=== PATIENT | female | born 1995 | race Caucasian/White ===

== ENCOUNTER 2017-07-26 20:51 | Emergency (ER) | payer OTHER ==
[~2017-07-26] VITALS: Ht 175.3 cm; Wt 104.3 kg
[~2017-07-26 20:51] MED LIST: ALBU0.0912 IH; FERR-212 PO; PREN-546 PO
[2017-07-26 21:06] VITALS: BP 126/75
--- NOTE | 2017-07-26 21:38 | NUR ---
PT TAKEN TO OVERFLOW 3.
--- NOTE | 2017-07-26 21:45 | NUR ---
PATIENT PRESENTS TO ED WITH c/o body ache and left side pain and episotomy pain . PT STATES slipt in bathroom and fell on left side . DENIES N/V/D; SKIN IS PINK/WARM/DRY; AAOX4 WITH EVEN AND STEADY GAIT; LUNGS CLEAR BL; HR EVEN AND REGULAR; PT DENIES ANY FEVER, CP, SOB, OR COUGH AT THIS TIME; PATIENT STATES PAIN OF 3/10 AT THIS TIME; VSS; PATIENT POSITIONED FOR COMFORT; HOB ELEVATED;sitting in chair. ER MD MADE AWARE OF PT STATUS.
--- NOTE | 2017-07-26 21:52 | NUR ---
Patient being evaluated by Dr. Nassar in overflow.
[2017-07-26 22:16] VITALS: BP 126/75
--- NOTE | 2017-07-26 22:16 | NUR ---
Patient discharged with v/s stable. Written and verbal after care instructions given and explained BY DR. HARRELL. Patient verbalized understanding. Ambulatory with steady gait. All questions addressed prior to discharge. Advised to follow up with PMD.
== END 2017-07-26 22:16 | disposition home or self-care (01) ==
LOC: MED 20:51
DX: Z04.3 Encounter for examination and observation following other accident (principal); R03.0 Elevated blood-pressure reading, without diagnosis of hypertension; Z91.048 Other nonmedicinal substance allergy status; Z88.8 Allergy status to other drugs, medicaments and biological substances; J45.909 Unspecified asthma, uncomplicated
CPT/HCPCS: 99283

== ENCOUNTER 2020-12-04 02:30 | Emergency (ER) | payer OTHER ==
[~2020-12-04] VITALS: Ht 175.3 cm; Wt 83.9 kg
[2020-12-04 02:34] VITALS: BP 112/75
[2020-12-04 03:39] LABS: ANION GAP 9.9 (8-16); CARBON DIOXIDE 28.9 mmol/L (21-32); CREATININE 0.9 mg/dL (0.6-1.3); POTASSIUM 3.8 mmol/L (3.5-5.1)
[2020-12-04] MEDS ORDERED: KETOROLAC 30 MG/ML VIAL IM ONE (03:50)
[2020-12-04 03:53] LABS: BARBITURATE, URINE NEGATIVE ng/ml (NEG <=200); BENZODIAZEPINE, URINE NEGATIVE ng/mL (NEG <=200); CANNABINOID, URINE NEGATIVE ng/mL (NEG <=50); COCAINE, URINE NEGATIVE ng/mL (NEG <=300); OPIATE, URINE NEGATIVE ng/mL (NEG <=2000); PHENCYCLIDINE SCREEN,URINE NEGATIVE ng/mL (NEG <=25)
[2020-12-04 04:18] VITALS: BP 112/75
== END 2020-12-04 04:19 | disposition home or self-care (01) ==
LOC: MED 02:30
DX: R07.89 Other chest pain (principal); F41.9 Anxiety disorder, unspecified; J45.909 Unspecified asthma, uncomplicated; Z79.899 Other long term (current) drug therapy; Z91.048 Other nonmedicinal substance allergy status
CPT/HCPCS: 36415; 71045; 80048; 80305; 85379; 93005; 96372; 99285; J1885

== ENCOUNTER 2020-12-24 20:48 | Emergency (ER) | payer OTHER ==
[~2020-12-24] VITALS: Ht 175.3 cm; Wt 83.9 kg
[2020-12-24 20:56] VITALS: BP 107/73
[2020-12-24 23:05] VITALS: BP 110/83
== END 2020-12-24 23:05 | disposition home or self-care (01) ==
LOC: MED 20:48
DX: G44.319 Acute post-traumatic headache, not intractable (principal); F07.81 Postconcussional syndrome; J45.909 Unspecified asthma, uncomplicated; Z79.899 Other long term (current) drug therapy; Z91.018 Allergy to other foods; W18.39XA Other fall on same level, initial encounter; Y93.89 Activity, other specified; Y92.89 Other specified places as the place of occurrence of the external cause; Y99.8 Other external cause status
CPT/HCPCS: 70450; 99284

== ENCOUNTER 2021-04-16 19:54 | Emergency (ER) | payer OTHER ==
[~2021-04-16] VITALS: Ht 175.3 cm; Wt 86.2 kg
[2021-04-16 20:00] VITALS: BP 120/76
--- NOTE | 2021-04-16 20:00 | NUR ---
TO BED AMBULATORY
--- NOTE | 2021-04-16 20:10 | NUR ---
25 YO F BIB SELF FOR C/O LOWER BACK PAIN, ABD PAIN. 8/10 RADIATING TO LOWER BACK/ABDOMEN X1 WEEK. PT DENIES FEVER CHILLS. URINARY FREQUENCY/BURNING NOTED. NO OTHER S/S OF DISTRESS NOTED. WILL CONTINUE TO OBSERVE Hx: UTI
[2021-04-16 20:25] LABS: APPEARANCE,URINE CLEAR (CLEAR); BILIRUBIN,URINE NEGATIVE (NEGATIVE); BLOOD, URINE NEGATIVE (NEGATIVE); COLOR,URINE YELLOW (YELLOW); LEUKOCYTE ESTERASE ,URINE NEGATIVE (NEGATIVE); NITRITE, URINE NEGATIVE (NEGATIVE); UGLUCOSE NEGATIVE (NEGATIVE)
[2021-04-16 20:41] LABS: RBC,URINE 0-5 /HPF (0-5); WBC,URINE 0-5 /HPF (0-5)
[2021-04-16] MEDS ORDERED: IBUP-2213 PO (20:44)
[2021-04-16] MEDS ORDERED: ACET-10509 PO (20:44)
[2021-04-16] MEDS ORDERED: CYCL-711 PO (20:44)
[2021-04-16] MEDS ORDERED: LIDO1PAD TP (20:44)
[2021-04-16] MEDS ORDERED: ACETAMINOPHEN EXTRA STRENGTH 500 MG TAB PO ONE (20:45)
[2021-04-16] MEDS ORDERED: KETOROLAC 60 MG/2 ML VIAL IM ONE (20:45)
[2021-04-16] MEDS ORDERED: CYCLOBENZAPRINE 10 MG TAB PO ONE (20:45)
[2021-04-16] MEDS ORDERED: CEPH250C16 PO (21:09)
[2021-04-16] MEDS ORDERED: SULF-58 PO (21:11)
[2021-04-16 22:00] VITALS: BP 120/76
--- NOTE | 2021-04-16 22:03 | NUR ---
Patient discharged with v/s stable. Written and verbal after care instructions given and explained. Patient alert, oriented and verbalized understanding of instructions. Ambulatory with steady gait. All questions addressed prior to discharge. ID band removed. Patient advised to follow up with PMD. Rx of ACETAMINOPHEN, FLEXERIL, IBUPROFEN, LIDOCAINE PATCH, BACTRIM given. Patient educated on indication of medication including possible reaction and side effects. Opportunity to ask questions provided and answered.
== END 2021-04-16 22:01 | disposition home or self-care (01) ==
LOC: MED 19:54
DX: M54.9 Dorsalgia, unspecified (principal); N98.9 Complication associated with artificial fertilization, unspecified; R30.0 Dysuria; J45.909 Unspecified asthma, uncomplicated; Z91.018 Allergy to other foods; Z79.899 Other long term (current) drug therapy
CPT/HCPCS: 81001; 87086; 96372; 99283; J1885

== ENCOUNTER 2024-05-08 10:53 | Emergency (ER) | payer OTHER ==
[~2024-05-08] VITALS: Ht 175.3 cm; Wt 100.9 kg
[~2024-05-08 10:53] MED LIST changes: +ACET-10509 PO; +CYCL-711 PO; +IBUP-2213 PO; +LIDO1PAD TP; +SULF-58 PO
[2024-05-08 10:57] VITALS: BP 138/56; PULSE 114; RESP 20; TEMP 98.8; O2SAT 96
[2024-05-08] MEDS ORDERED: VALA1TAB40 PO (12:22)
[2024-05-08] MEDS ORDERED: NAPR-337 PO (12:22)
[2024-05-08 12:38] VITALS: BP 138/56; PULSE 114; RESP 20; TEMP 98.8; O2SAT 96
== END 2024-05-08 12:35 | disposition home or self-care (01) ==
LOC: MED 10:53
DX: B02.9 Zoster without complications (principal); J45.909 Unspecified asthma, uncomplicated; Z79.899 Other long term (current) drug therapy; Z91.09 Other allergy status, other than to drugs and biological substances
CPT/HCPCS: 99284

== ENCOUNTER 2024-05-10 13:33 | Inpatient (IN) | payer OTHER ==
[~2024-05-10] VITALS: Ht 175.3 cm; Wt 99.8 kg
[~2024-05-10 13:33] MED LIST changes: +NAPR-337 PO; +VALA1TAB40 PO
[2024-05-10 14:00] VITALS: BP 108/63; PULSE 93; RESP 20; TEMP 101.1; O2SAT 99
[2024-05-10 14:35] VITALS: O2SAT 99
[2024-05-10] MEDS: NACL 0.9% 1,000 ML IV SCH ×2 (15:06→21:29)
[2024-05-10 15:13] LABS: BASOPHILS # (AUTO) 0.1 K/uL (0.00-0.22); BASOPHILS % (AUTO) 0.5 % (0.0-2.0); EOSINOPHILS # (AUTO) 0.1 K/uL (0-0.4); EOSINOPHILS % (AUTO) 0.5 % (0.0-4.0); HEMATOCRIT 36.7 % (36-48); HEMOGLOBIN 11.9 g/dL (12.0-16.0); LYMPHOCYTES # (AUTO) 1.1 K/uL (2.5-16.5); LYMPHOCYTES % (AUTO) 7.3 % (20.5-51.1); MEAN CORPUSCULAR HEMOGLOBIN 28 pg (27-31); MEAN CORPUSCULAR HGB CONC 32 g/dL (33-37); MONOCYTES % (AUTO) 6.9 % (1.7-9.3); NEUTROPHILS # (AUTO) 12.5 K/uL (1.8-7.7); NEUTROPHILS % (AUTO) 84.8 % (42.2-75.2); PLATELET COUNT (AUTO) 337 K/uL (140-450); RED BLOOD CELL COUNT(AUTO) 4.26 MIL/uL (4.20-5.40); RED CELL DISTRIBUTION WIDTH 13.3 % (11.6-13.7); WHITE BLOOD COUNT (AUTO) 14.8 K/uL (4.8-10.8)
[2024-05-10] MEDS: VANCOMYCIN 1,000 MG in DEXTROSE 5% 250 ML IV ONE (15:15)
[2024-05-10 15:20] LABS: APPEARANCE,URINE CLEAR (CLEAR); BILIRUBIN,URINE NEGATIVE (NEGATIVE); BLOOD, URINE TRACE-I (NEGATIVE); COLOR,URINE YELLOW (YELLOW); LEUKOCYTE ESTERASE ,URINE NEGATIVE (NEGATIVE); NITRITE, URINE NEGATIVE (NEGATIVE); PROTEIN,URINE NEGATIVE (NEGATIVE); UGLUCOSE NEGATIVE (NEGATIVE); UROBILINOGEN,URINE 0.2 EU/dL (0.2 - 1)
[2024-05-10] MEDS ORDERED: VANCOMYCIN 1,000 MG VIAL ONE (15:26)
[2024-05-10 15:28] LABS: ANION GAP 9.4 (8-16); CALCIUM 8.7 mg/dL (8.5-10.1); CREATININE 0.8 mg/dL (0.6-1.3); POTASSIUM 3.4 mmol/L (3.5-5.1)
[2024-05-10 15:32] LABS: ALBUMIN 3.3 g/dL (3.4-5.0); BILIRUBIN,DIRECT 0.1 mg/dL (0.0-0.3); TOTAL BILIRUBIN 0.6 mg/dL (0.0-1.0); TOTAL PROTEIN, SERUM 7.5 g/dL (6.4-8.2)
[2024-05-10 15:37] LABS: LACTIC ACID 0.8 mmol/L (0.4-2.0)
[2024-05-10] MEDS: MORPHINE SULFATE 4 MG/ML SYR IVP ONE (17:02)
[2024-05-10 17:35] VITALS: O2SAT 96
[2024-05-10] MEDS ORDERED: VANCOMYCIN PER PHARMACY MC PRN (17:45)
[2024-05-10] MEDS ORDERED: LORazepam 2 MG/ML VIAL IVP PRN (17:45)
[2024-05-10 20:00] VITALS: PULSE 86; RESP 18; O2SAT 97
[2024-05-10] MEDS: ONDANSETRON 4 MG/2 ML VIAL IVP PRN (21:41)
[2024-05-10] MEDS: MORPHINE SULFATE 2 MG/ML SYR IVP PRN (21:41)
[2024-05-10] MEDS: VANCOMYCIN 1,000 MG VIAL ONE (23:31)
[2024-05-10] MEDS: VANCOMYCIN 1GM/DEXT 5% PREMIX 200 ML IV NR (23:31)
[2024-05-11 04:00] VITALS: BP 103/58; PULSE 87; RESP 18; TEMP 99.3; O2SAT 97
[2024-05-11] MEDS: VANCOMYCIN 1,000 MG VIAL ONE (06:13)
[2024-05-11 06:55] LABS: BASOPHILS % (AUTO) 0.3 % (0.0-2.0); EOSINOPHILS # (AUTO) 0.1 K/uL (0-0.4); EOSINOPHILS % (AUTO) 0.7 % (0.0-4.0); HEMATOCRIT 33.2 % (36-48); LYMPHOCYTES # (AUTO) 1.6 K/uL (2.5-16.5); LYMPHOCYTES % (AUTO) 10.7 % (20.5-51.1); MEAN CORPUSCULAR HEMOGLOBIN 28 pg (27-31); MEAN CORPUSCULAR HGB CONC 33 g/dL (33-37); MEAN CORPUSCULAR VOLUME 85.4 fL (80-94); MONOCYTES # (AUTO) 1.3 K/uL (0.8-1.0); MONOCYTES % (AUTO) 8.7 % (1.7-9.3); NEUTROPHILS # (AUTO) 12.2 K/uL (1.8-7.7); NEUTROPHILS % (AUTO) 79.6 % (42.2-75.2); PLATELET COUNT (AUTO) 311 K/uL (140-450); RED BLOOD CELL COUNT(AUTO) 3.88 MIL/uL (4.20-5.40); RED CELL DISTRIBUTION WIDTH 13.8 % (11.6-13.7); WHITE BLOOD COUNT (AUTO) 15.3 K/uL (4.8-10.8)
[2024-05-11 07:29] LABS: ALBUMIN 2.8 g/dL (3.4-5.0); ANION GAP 9.2 (8-16); CALCIUM 8.1 mg/dL (8.5-10.1); CARBON DIOXIDE 29.4 mmol/L (21-32); CREATININE 0.8 mg/dL (0.6-1.3); MAGNESIUM 1.9 mg/dL (1.8-2.4); POTASSIUM 3.6 mmol/L (3.5-5.1); TOTAL BILIRUBIN 0.6 mg/dL (0.0-1.0); TOTAL PROTEIN, SERUM 6.6 g/dL (6.4-8.2)
[2024-05-11] MEDS ORDERED: POTASSIUM CHLORIDE 10 MEQ TABER PO PRN (07:50)
[2024-05-11 08:00] VITALS: PULSE 86; RESP 18; O2SAT 97
[2024-05-11] MEDS: LEVOFLOXACIN 750 MG/D5W PREMIX 150 ML IV SCH (08:07)
[2024-05-11] MEDS: ENOXAPARIN 40 MG/0.4 ML SYR SUBQ SCH (08:12)
[2024-05-11] MEDS: MEDS-TO-BEDS MC SCH (09:00)
[2024-05-11] MEDS: HYDROcodone/APAP 5/325 MG 1 TAB TAB PO PRN (13:04)
[2024-05-11 16:00] VITALS: BP 114/76; PULSE 78; PULSE 86; RESP 18; TEMP 98.2; O2SAT 97
[2024-05-11] MEDS ORDERED: VANCOMYCIN PER PHARMACY MC PRN (16:30)
[2024-05-11 20:00] VITALS: PULSE 84; RESP 18; O2SAT 98
[2024-05-11] MEDS: VANCOMYCIN 1,500 MG in DEXTROSE 5% 500 ML IV SCH (20:47)
[2024-05-12 01:30] VITALS: BP 110/62; PULSE 85; RESP 18; TEMP 98.6; O2SAT 98
[2024-05-12 07:38] LABS: CALCIUM 8.4 mg/dL (8.5-10.1); CARBON DIOXIDE 31.5 mmol/L (21-32); CREATININE 0.9 mg/dL (0.6-1.3); POTASSIUM 3.5 mmol/L (3.5-5.1)
[2024-05-12 07:40] VITALS: PULSE 75; RESP 20; O2SAT 95
[2024-05-12 07:41] VITALS: BP 121/72; PULSE 75; RESP 20; TEMP 97.5; O2SAT 95
[2024-05-12] MEDS ORDERED: LEVOFLOXACIN 750 MG/D5W PREMIX 150 ML IV SCH (08:00)
[2024-05-12 08:24] LABS: BASOPHILS % (AUTO) 0.2 % (0.0-2.0); EOSINOPHILS # (AUTO) 0.2 K/uL (0-0.4); HEMATOCRIT 33.1 % (36-48); HEMOGLOBIN 10.7 g/dL (12.0-16.0); LYMPHOCYTES # (AUTO) 1.6 K/uL (2.5-16.5); LYMPHOCYTES % (AUTO) 9.9 % (20.5-51.1); MEAN CORPUSCULAR HEMOGLOBIN 28 pg (27-31); MEAN CORPUSCULAR HGB CONC 32 g/dL (33-37); MEAN CORPUSCULAR VOLUME 86.2 fL (80-94); MONOCYTES # (AUTO) 1.2 K/uL (0.8-1.0); MONOCYTES % (AUTO) 7.2 % (1.7-9.3); NEUTROPHILS # (AUTO) 13.5 K/uL (1.8-7.7); NEUTROPHILS % (AUTO) 81.7 % (42.2-75.2); PLATELET COUNT (AUTO) 293 K/uL (140-450); RED BLOOD CELL COUNT(AUTO) 3.84 MIL/uL (4.20-5.40); RED CELL DISTRIBUTION WIDTH 13.5 % (11.6-13.7); WHITE BLOOD COUNT (AUTO) 16.5 K/uL (4.8-10.8)
[2024-05-12 16:00] VITALS: BP 111/65; PULSE 90; RESP 20; TEMP 98.8; O2SAT 95
[2024-05-12] MEDS: CHLORHEXADINE GLUC 2% CLOTH TP SCH (18:36)
[2024-05-12] MEDS: MUPIROCIN CA NASAL 2% 1GM TUBE NS SCH (18:37)
[2024-05-12 20:00] VITALS: PULSE 99; RESP 18; O2SAT 98
[2024-05-13] VITALS: BP 97/50; PULSE 99; RESP 18; TEMP 98.9; O2SAT 100
[2024-05-13 07:12] LABS: BASOPHILS # (AUTO) 0.1 K/uL (0.00-0.22); BASOPHILS % (AUTO) 0.4 % (0.0-2.0); EOSINOPHILS # (AUTO) 0.2 K/uL (0-0.4); EOSINOPHILS % (AUTO) 1.7 % (0.0-4.0); HEMATOCRIT 32.7 % (36-48); HEMOGLOBIN 10.9 g/dL (12.0-16.0); LYMPHOCYTES # (AUTO) 1.6 K/uL (2.5-16.5); LYMPHOCYTES % (AUTO) 11.2 % (20.5-51.1); MEAN CORPUSCULAR HEMOGLOBIN 28 pg (27-31); MEAN CORPUSCULAR HGB CONC 33 g/dL (33-37); MEAN CORPUSCULAR VOLUME 85.6 fL (80-94); MONOCYTES # (AUTO) 1.1 K/uL (0.8-1.0); MONOCYTES % (AUTO) 7.8 % (1.7-9.3); NEUTROPHILS # (AUTO) 11.2 K/uL (1.8-7.7); NEUTROPHILS % (AUTO) 78.9 % (42.2-75.2); PLATELET COUNT (AUTO) 325 K/uL (140-450); RED BLOOD CELL COUNT(AUTO) 3.82 MIL/uL (4.20-5.40); RED CELL DISTRIBUTION WIDTH 13.7 % (11.6-13.7); WHITE BLOOD COUNT (AUTO) 14.3 K/uL (4.8-10.8)
[2024-05-13 07:46] LABS: ANION GAP 9.5 (8-16); CALCIUM 8.7 mg/dL (8.5-10.1); CARBON DIOXIDE 31.2 mmol/L (21-32); CREATININE 0.8 mg/dL (0.6-1.3); POTASSIUM 3.7 mmol/L (3.5-5.1)
[2024-05-13 08:00] VITALS: BP 94/50; PULSE 65; RESP 20; TEMP 96.8; O2SAT 94
[2024-05-13 16:00] VITALS: BP 90/42; PULSE 74; RESP 20; TEMP 98.2; O2SAT 96
[2024-05-13] MEDS: VANCOMYCIN 1,500 MG in DEXTROSE 5% 500 ML IV SCH (16:26)
[2024-05-13] MEDS ORDERED: LIDOCAINE 2% 1000 MG/50 ML VIAL INJ SCH (16:46)
[2024-05-13] MEDS: LIDOCAINE 1% 500 MG/50 ML VIAL INJ SCH (17:38)
[2024-05-13 20:00] VITALS: BP 101/49; PULSE 104; PULSE 109; RESP 20; TEMP 98.2; O2SAT 96; O2SAT 99
[2024-05-14 07:39] LABS: BASOPHILS # (AUTO) 0.1 K/uL (0.00-0.22); BASOPHILS % (AUTO) 0.6 % (0.0-2.0); EOSINOPHILS # (AUTO) 0.2 K/uL (0-0.4); HEMATOCRIT 32.1 % (36-48); HEMOGLOBIN 10.6 g/dL (12.0-16.0); LYMPHOCYTES # (AUTO) 1.7 K/uL (2.5-16.5); LYMPHOCYTES % (AUTO) 14.2 % (20.5-51.1); MEAN CORPUSCULAR HEMOGLOBIN 28 pg (27-31); MEAN CORPUSCULAR HGB CONC 33 g/dL (33-37); MEAN CORPUSCULAR VOLUME 85.4 fL (80-94); MONOCYTES # (AUTO) 0.9 K/uL (0.8-1.0); MONOCYTES % (AUTO) 7.2 % (1.7-9.3); NEUTROPHILS # (AUTO) 9.3 K/uL (1.8-7.7); PLATELET COUNT (AUTO) 361 K/uL (140-450); RED BLOOD CELL COUNT(AUTO) 3.75 MIL/uL (4.20-5.40); RED CELL DISTRIBUTION WIDTH 13.2 % (11.6-13.7); WHITE BLOOD COUNT (AUTO) 12.3 K/uL (4.8-10.8)
[2024-05-14 08:00] VITALS: BP 109/60; PULSE 72; RESP 18; TEMP 97; O2SAT 98
[2024-05-14 08:00] LABS: ANION GAP 11.6 (8-16); CALCIUM 8.3 mg/dL (8.5-10.1); CARBON DIOXIDE 28.1 mmol/L (21-32); CREATININE 0.7 mg/dL (0.6-1.3); POTASSIUM 3.7 mmol/L (3.5-5.1)
[2024-05-14 16:00] VITALS: BP 111/62; PULSE 91; RESP 18; TEMP 96.7; O2SAT 98
[2024-05-14] MEDS ORDERED: LIDOCAINE MPF 2% 100 MG/5 ML VIAL INJ SCH (16:46)
[2024-05-14 20:00] VITALS: BP 91/47; PULSE 72; PULSE 74; RESP 18; TEMP 96.9; O2SAT 98
[2024-05-14] MEDS: VANCOMYCIN 1.25GM PREMIX 250 ML IV SCH (23:49)
[2024-05-15] MEDS: ACETAMINOPHEN 325 MG TAB PO PRN (00:35)
[2024-05-15 06:46] LABS: BASOPHILS % (AUTO) 0.6 % (0.0-2.0); EOSINOPHILS # (AUTO) 0.3 K/uL (0-0.4); EOSINOPHILS % (AUTO) 4.1 % (0.0-4.0); HEMATOCRIT 30.9 % (36-48); HEMOGLOBIN 10.2 g/dL (12.0-16.0); MEAN CORPUSCULAR HEMOGLOBIN 28 pg (27-31); MEAN CORPUSCULAR HGB CONC 33 g/dL (33-37); MEAN CORPUSCULAR VOLUME 85.6 fL (80-94); MONOCYTES # (AUTO) 0.7 K/uL (0.8-1.0); MONOCYTES % (AUTO) 8.2 % (1.7-9.3); NEUTROPHILS # (AUTO) 5.3 K/uL (1.8-7.7); NEUTROPHILS % (AUTO) 63.1 % (42.2-75.2); PLATELET COUNT (AUTO) 362 K/uL (140-450); RED BLOOD CELL COUNT(AUTO) 3.61 MIL/uL (4.20-5.40); RED CELL DISTRIBUTION WIDTH 13.5 % (11.6-13.7); WHITE BLOOD COUNT (AUTO) 8.4 K/uL (4.8-10.8)
[2024-05-15 07:55] LABS: ANION GAP 11.4 (8-16); CALCIUM 8.4 mg/dL (8.5-10.1); CARBON DIOXIDE 28.2 mmol/L (21-32); CREATININE 0.8 mg/dL (0.6-1.3); POTASSIUM 3.6 mmol/L (3.5-5.1)
[2024-05-15 08:00] VITALS: BP 110/50; PULSE 72; PULSE 81; RESP 18; TEMP 97.8; O2SAT 98
[2024-05-15] MEDS ORDERED: NON ADHERENT DRESSING TP PRN (11:15)
[2024-05-15] MEDS: NON ADHERENT DRESSING TP SCH (12:49)
[2024-05-15] MEDS ORDERED: SULF-58 PO (13:36)
[2024-05-15] MEDS ORDERED: ACET-9525 PO (13:47)
[2024-05-15 13:54] VITALS: BP 99/110; PULSE 58; RESP 18; TEMP 97.8
== END 2024-05-15 16:10 | disposition home or self-care (01) | DRG 364 ==
LOC: MED 13:33 → MTU 17:47
PROVIDERS: ADMIT Hospitalist; ATTEND Hospitalist
PROC: 0W9F0ZZ Drainage of Abdominal Wall, Open Approach (ICD-10-PCS; principal; 2024-05-13)
DX: L02.211 Cutaneous abscess of abdominal wall (principal); R65.11 Systemic inflammatory response syndrome (SIRS) of non-infectious origin with acute organ dysfunction; E44.0 Moderate protein-calorie malnutrition; R64 Cachexia; L03.311 Cellulitis of abdominal wall; E11.9 Type 2 diabetes mellitus without complications; I10 Essential (primary) hypertension; W57.XXXA Bitten or stung by nonvenomous insect and other nonvenomous arthropods, initial encounter; J45.909 Unspecified asthma, uncomplicated; Z79.51 Long term (current) use of inhaled steroids; Z79.899 Other long term (current) drug therapy; Z88.8 Allergy status to other drugs, medicaments and biological substances; Y93.89 Activity, other specified; Y92.89 Other specified places as the place of occurrence of the external cause; Y99.8 Other external cause status; Z68.32 Body mass index [BMI] 32.0-32.9, adult; E87.1 Hypo-osmolality and hyponatremia
CPT/HCPCS: 36415; 71045; 76604; 80048; 80053; 80076; 80202; 81003; 83605; 83735; 83880; 84484; 85025; 87040; 87070; 87075; 87081; 87086; 87186; 87205; 93005; 96365; 96366; 96375; 99285; J1650; J1956; J2001; J2270; J2405; J3370; J3372; J7060; Q0092

== ENCOUNTER 2024-05-16 20:13 | Emergency (ER) | payer OTHER ==
[~2024-05-16] VITALS: Ht 175.3 cm; Wt 99.3 kg
[~2024-05-16 20:13] MED LIST changes: -ACET-10509 PO; +ACET-9525 PO; -FERR-212 PO; -IBUP-2213 PO; -LIDO1PAD TP; -NAPR-337 PO; -PREN-546 PO; -VALA1TAB40 PO
[2024-05-16 20:40] VITALS: BP 118/68; PULSE 76; RESP 16; TEMP 98.7; O2SAT 99
[2024-05-16 21:00] VITALS: BP 118/68; PULSE 76; RESP 16; TEMP 98.7; O2SAT 98
== END 2024-05-16 21:51 | disposition home or self-care (01) ==
LOC: MED 20:13
DX: Z48.01 Encounter for change or removal of surgical wound dressing (principal); J45.909 Unspecified asthma, uncomplicated; Z79.899 Other long term (current) drug therapy; Z91.048 Other nonmedicinal substance allergy status; Z88.1 Allergy status to other antibiotic agents
CPT/HCPCS: 99281

== ENCOUNTER 2024-05-17 17:15 | Emergency (ER) | payer OTHER ==
[~2024-05-17] VITALS: Ht 175.3 cm; Wt 99.3 kg
[2024-05-17 18:00] VITALS: BP 105/72; PULSE 91; RESP 15; TEMP 98.5; O2SAT 97
[2024-05-17 19:55] VITALS: BP 110/78; PULSE 89; RESP 17; TEMP 98; O2SAT 98
== END 2024-05-17 19:55 | disposition home or self-care (01) ==
LOC: MED 17:15
DX: Z48.00 Encounter for change or removal of nonsurgical wound dressing (principal); J45.909 Unspecified asthma, uncomplicated; Z79.899 Other long term (current) drug therapy; Z88.1 Allergy status to other antibiotic agents; Z91.048 Other nonmedicinal substance allergy status
CPT/HCPCS: 99281

== ENCOUNTER 2024-05-18 16:32 | Emergency (ER) | payer OTHER ==
[~2024-05-18] VITALS: Ht 175.3 cm; Wt 99.3 kg
[2024-05-18 16:40] VITALS: BP 123/65; PULSE 79; RESP 16; TEMP 97.2; O2SAT 99
[2024-05-18 17:32] VITALS: O2SAT 99
== END 2024-05-18 18:09 | disposition home or self-care (01) ==
LOC: MED 16:32
DX: Z48.00 Encounter for change or removal of nonsurgical wound dressing (principal); J45.909 Unspecified asthma, uncomplicated; Z79.1 Long term (current) use of non-steroidal anti-inflammatories (NSAID); Z79.899 Other long term (current) drug therapy; Z88.1 Allergy status to other antibiotic agents; Z91.09 Other allergy status, other than to drugs and biological substances
CPT/HCPCS: 99282